=== PATIENT | male | born 2000 | race Caucasian/White ===

== ENCOUNTER 2019-05-02 10:09 | Day surgery (SDC) | payer OTHER ==
[~2019-05-02 10:09] MED LIST: Lidocaine 2% 5 ML SDV ONE; Midazolam 1 MG/ML 2 ML SDV ONE; Propofol 200 MG/20 ML SDV ONE; fentaNYL 100 MCG/2 ML SDV ONE
--- NOTE | 2019-05-02 11:23 | PCM.PREANE ---
Preanesthetic Assessment - Anesthesia/Transfusion/Family Hx Anesthesia History: Prior Anesthesia Without Reaction Family History of Anesthesia Reaction: No Transfusion History: No Prior Transfusion(s) - Review of Systems General: No Symptoms Pulmonary: No Symptoms Cardiovascular: No Symptoms Gastrointestinal: Other (Abdominal Pain) Neurological: No Symptoms Other: Reports: None - Physical Assessment NPO Status Date: 05/02/19 NPO Status Time: 00:00 Height: 1.83 m Weight: 83.007 kg ASA Class: 1 Mental Status: Alert & Oriented x3 Airway Class: Mallampati = 2 Dentition: Reports: Normal Dentition Thyro-Mental Finger Breadths: 3 Mouth Opening Finger Breadths: 3 Lungs: Clear to Auscultation, Normal Respiratory Effort Cardiovascular: Regular Rate, Regular Rhythm - Allergies Allergies/Adverse Reactions: Allergies Allergy/AdvReac Type Severity Reaction Status Date / Time No Known Allergies Allergy Verified 04/27/19 08:59 PreAnesthesia Questionnaire - Past Health History Medical/Surgical History: Denies Medical/Surgical History HEENT History: Reports: Other (See Below) Other HEENT History: wears glasses/contacts - SUBSTANCE USE Smoking Status *Q: Current Every Day Smoker Tobacco Use Within Last Twelve Months: Cigarettes Recreational Drug Use History: No - HOME MEDS Home Medications: Home Meds Omeprazole 20 mg PO BID 04/27/19 [History] - CURRENT (IN HOUSE) MEDS Current Meds: Current Medications Discontinued Medications Fentanyl (Sublimaze) Confirm Administered Dose 100 mcg .ROUTE .STK-MED ONE Stop: 05/02/19 09:25 Lidocaine (Xylocaine-Mpf 2%) Confirm Administered Dose 5 ml .ROUTE .STK-MED ONE Stop: 05/02/19 09:25 Midazolam HCl (Versed 1 Mg/Ml) Confirm Administered Dose 2 mg .ROUTE .STK-MED ONE Stop: 05/02/19 09:25 Propofol (Diprivan 20 Ml) Confirm Administered Dose 400 mg .ROUTE .STK-MED ONE Stop: 05/02/19 09:25
--- NOTE | 2019-05-02 11:55 | PCM.OPNOTE ---
- General Post-Op/Procedure Note Date of Surgery/Procedure: 05/02/19 Operative Procedure(s): Esophagogastroduodenoscopy with gastric and esophageal biopsies Pre Op Diagnosis: Epigastric pain. Progressive heartburn. Post-Op Diagnosis: Moderate gastritis. Mild esophagitis. Anesthesia Technique: MAC (ASA I) Primary Surgeon: Carmelo Alejandra Condition: Good Free Text/Narrative:: DICTATION [id number] CPT CODE [id number]
[2019-05-02] MEDS ORDERED: Lactated Ringers 1,000 ML IV SCH (12:00)
--- NOTE | 2019-05-02 13:36 | PCM.POSTAN ---
POST ANESTHESIA ASSESSMENT - MENTAL STATUS Mental Status: Alert, Oriented - RESPIRATORY Respiratory Status: Respiratory Rate WNL, Airway Patent, O2 Saturation Stable - CARDIOVASCULAR CV Status: Pulse Rate WNL, Blood Pressure Stable - GASTROINTESTINAL GI Status: No Symptoms - POST OP HYDRATION Hydration Status: Adequate & Stable
--- NOTE | 2019-05-02 13:36 | PCM48HPAN ---
Post Anesthesia Note - EVALUATION WITHIN 48HRS OF ANESTHETIC Vital Signs in Normal Range: Yes Patient Participated in Evaluation: Yes Respiratory Function Stable: Yes Airway Patent: Yes Cardiovascular Function Stable: Yes Hydration Status Stable: Yes Pain Control Satisfactory: Yes Nausea and Vomiting Control Satisfactory: Yes Mental Status Recovered: Yes Resp Rate: 12
--- NOTE | 2019-05-02 14:34 | OR ---
SURGEON: Carmelo Alejandra M.D. DATE OF PROCEDURE: 05/02/2019 OPERATION PERFORMED: Esophagogastroduodenoscopy with gastric and esophageal biopsy. PRIMARY SURGEON: Carmelo Alejandra MD. ANESTHESIA: MAC. ASA CLASSIFICATION: I. PREOPERATIVE DIAGNOSIS: Persistent epigastric pain with progressive heartburn. POSTOPERATIVE DIAGNOSES: 1. Mild gastritis. 2. Mild esophagitis. 3. No evidence of ulcerations. DESCRIPTION OF PROCEDURE: The patient was taken to the endoscopy room and positioned on the endoscopy table in the supine position. Time-out was called for appropriate identification of the patient and procedure. Monitored anesthesia care was provided. The bite block was placed between the patient's teeth. The gastroscope was inserted through the bite block and advanced without difficulty through the esophagus and stomach into the duodenum where examination was now carried out in a retrograde fashion. The duodenum shows no acute inflammatory changes or ulcerations. The scope was withdrawn into the stomach that does show a mild to moderate gastritis. Antral biopsies were obtained to look for the presence of Helicobacter pylori. The gastroscope was retroflexed to visualize the proximal stomach. No acute ulcerations or erosions were noted. The gastroscope was then straightened and slowly withdrawn, carefully visualizing the greater and lesser curvatures. Again, no ulcerations were noted. The GE junction is well defined, although there are some mild inflammatory changes in the distal esophagus and separate biopsies of this area were taken. The esophagus itself demonstrates good contractility. No mid or proximal lesions were identified. The vocal cords were visualized as the scope was withdrawn and noted to move symmetrically. The gastroscope was then removed with the patient having tolerated the procedure well. He was taken to recovery room in satisfactory condition. GEOVANNI / EDUARD /[id number]
== END 2019-05-02 12:45 | disposition home or self-care (01) ==
LOC: MW.SDS 10:09
PROVIDERS: ATTEND Surgery
DX: K29.50 Unspecified chronic gastritis without bleeding (principal); K20.9 Esophagitis, unspecified; F17.210 Nicotine dependence, cigarettes, uncomplicated; Z79.899 Other long term (current) drug therapy
CPT/HCPCS: 43239; J2001; J2250; J2704; J3010; J7120